=== PATIENT | male | born 1945 | race Asian ===

== ENCOUNTER 2021-05-28 14:11 | Inpatient (IN) | payer OTHER, MEDICAID ==
[~2021-05-28] VITALS: Ht 165.1 cm; Wt 58.5 kg
[2021-05-28 14:11] VITALS: BP_SYST 151
[2021-05-28] MEDS ORDERED: NACL 0.9% 1,000 ML IV ONE (14:45)
[2021-05-28 15:51] LABS: MEAN CORPUSCULAR HEMOGLOBIN 35 pg (27-31)
[2021-05-28 15:56] LABS: ANION GAP 11 (5-15); CALCIUM 10.1 mg/dL (8.4-11.0); CHLORIDE 103 mmol/L (98-107); CREATININE 1.19 mg/dL (0.55-1.30); GLUCOSE 113 mg/dL (70-99); POTASSIUM 4.4 mmol/L (3.5-5.1); SODIUM SERUM 143 mmol/L (136-145); UREA NITROGEN, BLOOD 33 mg/dL (8-21)
[2021-05-28 16:02] LABS: ALANINE AMINOTRANSFERASE 36 U/L (12-78); ALBUMIN 4.3 g/dL (3.4-4.8); ASPARTATE AMINOTRANSFERASE 71 U/L (10-37); TOTAL BILIRUBIN 1.1 mg/dL (0.0-1.0)
[2021-05-28 16:03] LABS: ALCOHOL, BLOOD < 3 mg/dL (<10)
[2021-05-28 16:05] LABS: BASOPHILS % (AUTO) 0.1 % (0.0-2.0); HEMATOCRIT 46.1 % (36-54); HEMOGLOBIN 15.9 g/dL (14.0-18.0); LYMPHOCYTES # (AUTO) 0.7 K/uL (1.0-5.5); LYMPHOCYTES % (AUTO) 6.2 % (20.5-51.5); MEAN CORPUSCULAR HGB CONC 35 % (32-36); MEAN CORPUSCULAR VOLUME 102 fL (79.0-98.0); MONOCYTES # (AUTO) 0.8 K/uL (0.0-1.0); MONOCYTES % (AUTO) 7.4 % (1.7-9.3); NEUTROPHILS # (AUTO) 9.5 K/uL (1.8-7.7); NEUTROPHILS % (AUTO) 86.3 % (40.0-70.0); PLATELET COUNT (AUTO) 213 K/uL (130-430); RED BLOOD CELL COUNT(AUTO) 4.51 MIL/uL (4.2-6.2); RED CELL DISTRIBUTION WIDTH 12.1 % (9.0-15.0)
[2021-05-28] MEDS ORDERED: ASPIRIN 325 MG TABLET PO ONE (16:15)
[2021-05-28 16:24] LABS: BARBITURATE, URINE NEGATIVE (NEG <=200); BENZODIAZEPINE, URINE NEGATIVE (NEG <=150); CANNABINOID, URINE NEGATIVE (NEG <=50); COCAINE, URINE NEGATIVE (NEG <=150); METHAMPHETAMINES SCREEN,URINE NEGATIVE (NEG <=500); OPIATE, URINE NEGATIVE (NEG <=100); PHENCYCLIDINE SCREEN,URINE NEGATIVE (NEG <=25); UR TRICYCLIC ANTIDEPRESSANTS NEGATIVE (NEG <=300); URINE AMPHETAMINE NEGATIVE (NEG <=500); URINE METHADONE NEGATIVE (NEG <=200); URINE OXYCODONE SCREEN NEGATIVE (NEG <=100); URINE PROPOXYPHENE SCREEN NEGATIVE (NEG <=300)
[2021-05-28 16:50] LABS: BILIRUBIN,URINE NEGATIVE (NEGATIVE); BLOOD, URINE 2+ (NEGATIVE); COLOR,URINE YELLOW (YELLOW); GLUCOSE,URINE NEGATIVE (NEGATIVE); KETONES,URINE 2+ (NEGATIVE); LEUKOCYTE ESTERASE ,URINE NEGATIVE (NEGATIVE); NITRITE, URINE NEGATIVE (NEGATIVE); PH,URINE 5.5 (5.0-8.0); PROTEIN URINE 1+ (NEGATIVE); UROBILINOGEN,URINE 0.2 (0.2-1.0)
[2021-05-28 17:00] LABS: CLARITY/URINE SLIGHTLY HAZY (CLEAR)
[2021-05-28 17:15] LABS: PROTHROMBIN TIME 10.8 SECS (9.5-12.5)
[2021-05-28 17:21] LABS: RBC,URINE 0-3 /HPF (0-3)
[2021-05-28 17:22] LABS: BACTERIA,URINE FEW /HPF (None Seen); WBC,URINE 0-3 /HPF (0-3)
[2021-05-28] MEDS ORDERED: HALOPERIDOL LACTATE 5 MG/ML VIAL IM ONE (18:00)
[2021-05-28] MEDS ORDERED: BENZTROPINE MESYLATE 2 MG/ 2 ML AMP IM ONE (18:00)
[2021-05-28] MEDS ORDERED: HALOPERIDOL LACTATE 5 MG/ML VIAL ONE (18:01)
[2021-05-28] MEDS ORDERED: BENZTROPINE MESYLATE 2 MG/ 2 ML AMP ONE (18:02)
[2021-05-28] MEDS ORDERED: NS 500 ML IV ONE (18:45)
[2021-05-29] MEDS ORDERED: LORazepam 2 MG/ML VIAL IVP ONE (03:30)
[2021-05-29] MEDS ORDERED: DIPHENHYDRAMINE INJ 50 MG/ML VIAL IVP ONE ×2 (03:30→16:00)
[2021-05-29 03:54] LABS: BASOPHILS # (AUTO) 0.1 K/uL (0.0-0.2); BASOPHILS % (AUTO) 1.1 % (0.0-2.0); EOSINOPHILS % (AUTO) 0.2 % (0.0-4.0); HEMATOCRIT 43.6 % (36-54); LYMPHOCYTES # (AUTO) 0.5 K/uL (1.0-5.5); MEAN CORPUSCULAR HEMOGLOBIN 35 pg (27-31); MEAN CORPUSCULAR HGB CONC 34 % (32-36); MEAN CORPUSCULAR VOLUME 103 fL (79.0-98.0); MONOCYTES # (AUTO) 0.7 K/uL (0.0-1.0); MONOCYTES % (AUTO) 8.8 % (1.7-9.3); NEUTROPHILS # (AUTO) 6.8 K/uL (1.8-7.7); NEUTROPHILS % (AUTO) 83.9 % (40.0-70.0); PLATELET COUNT (AUTO) 168 K/uL (130-430); RED BLOOD CELL COUNT(AUTO) 4.25 MIL/uL (4.2-6.2); RED CELL DISTRIBUTION WIDTH 12.6 % (9.0-15.0); WHITE BLOOD COUNT (AUTO) 8.1 K/uL (4.8-10.8)
[2021-05-29 04:14] LABS: ANION GAP 13 (5-15); CALCIUM 8.7 mg/dL (8.4-11.0); CHLORIDE 106 mmol/L (98-107); CREATININE 0.97 mg/dL (0.55-1.30); GLUCOSE 101 mg/dL (70-99); POTASSIUM 3.8 mmol/L (3.5-5.1); SODIUM SERUM 143 mmol/L (136-145); UREA NITROGEN, BLOOD 30 mg/dL (8-21)
[2021-05-29 04:28] LABS: ALANINE AMINOTRANSFERASE 27 U/L (12-78); ALBUMIN 3.6 g/dL (3.4-4.8); ASPARTATE AMINOTRANSFERASE 77 U/L (10-37); THYROID STIMULATING HORMONE 0.99 uIu/mL (0.36-3.74); TOTAL BILIRUBIN 1.2 mg/dL (0.0-1.0)
[2021-05-29 07:55] LABS: CHOLESTEROL 165 mg/dL (<200); HDL CHOLESTEROL 78 mg/dL (>45); LDL CHOLESTEROL 90 mg/dL (<100); TRIGLYCERIDES 71 mg/dL (30-150)
[2021-05-29 08:30] VITALS: BP_SYST 159
[2021-05-29 08:42] VITALS: BP_SYST 159
[2021-05-29 11:27] VITALS: BP_SYST 155
[2021-05-29 16:00] VITALS: BP_SYST 140
[2021-05-29] MEDS ORDERED: HALOPERIDOL LACTATE 5 MG/ML VIAL IVP ONE (16:00)
[2021-05-29] MEDS: NACL 0.9% 1,000 ML IV SCH (16:15)
[2021-05-29 20:00] VITALS: BP_SYST 123
[2021-05-29] MEDS: QUEtiapine FUMARATE 25 MG TABLET PO SCH (20:21)
[2021-05-30] MEDS: LORazepam 2 MG/ML VIAL IVP PRN ×4 (00:09→20:13)
[2021-05-30 01:00] VITALS: BP_SYST 144
[2021-05-30 06:57] LABS: BASOPHILS % (AUTO) 0.3 % (0.0-2.0); EOSINOPHILS % (AUTO) 0.4 % (0.0-4.0); HEMOGLOBIN 16.5 g/dL (14.0-18.0); LYMPHOCYTES # (AUTO) 0.7 K/uL (1.0-5.5); LYMPHOCYTES % (AUTO) 10.9 % (20.5-51.5); MEAN CORPUSCULAR HEMOGLOBIN 36 pg (27-31); MEAN CORPUSCULAR HGB CONC 35 % (32-36); MEAN CORPUSCULAR VOLUME 102 fL (79.0-98.0); MONOCYTES # (AUTO) 0.7 K/uL (0.0-1.0); MONOCYTES % (AUTO) 11.3 % (1.7-9.3); NEUTROPHILS # (AUTO) 4.9 K/uL (1.8-7.7); NEUTROPHILS % (AUTO) 77.1 % (40.0-70.0); PLATELET COUNT (AUTO) 177 K/uL (130-430); RED CELL DISTRIBUTION WIDTH 12.4 % (9.0-15.0); WHITE BLOOD COUNT (AUTO) 6.3 K/uL (4.8-10.8)
[2021-05-30 08:33] LABS: ANION GAP 12 (5-15); CALCIUM 8.9 mg/dL (8.4-11.0); CHLORIDE 104 mmol/L (98-107); CREATININE 0.89 mg/dL (0.55-1.30); GLUCOSE 75 mg/dL (70-99); POTASSIUM 3.4 mmol/L (3.5-5.1); SODIUM SERUM 141 mmol/L (136-145); UREA NITROGEN, BLOOD 19 mg/dL (8-21)
[2021-05-30 08:53] VITALS: BP_SYST 146
[2021-05-30] MEDS ORDERED: AMIODARONE HCL 150 MG in D5W 100 ML IV ONE ×4 (09:00)
[2021-05-30] MEDS ORDERED: FOLIC ACID 1 MG, THIAMINE HCL 100 MG, MAGNESIUM SULFATE 1 GM, MVI 10 ML in NACL 0.9% 1,... IV SCH (09:00)
[2021-05-30] MEDS ORDERED: METOPROLOL TARTRATE 5 MG/5 ML AMPUL IVP ONE (09:45)
[2021-05-30] MEDS ORDERED: METOPROLOL TARTRATE 5 MG/5 ML AMPUL ONE (09:54)
[2021-05-30] MEDS ORDERED: METOPROLOL SUCCINATE 25 MG TAB.SR.24H (TOPROL XL) PO ONE (10:00)
[2021-05-30] MEDS: FOLIC ACID 1 MG, MVI 10 ML in NACL 0.9% 1,000 ML IV SCH (11:03)
[2021-05-30] MEDS: THIAMINE HCL 100 MG, MAGNESIUM SULFATE 1 GM in NS 100 ML IV SCH (11:03)
[2021-05-30] MEDS: AMIODARONE HCL 200 MG TABLET PO SCH ×2 (11:06→20:21)
[2021-05-30 11:30] VITALS: BP_SYST 130
[2021-05-30 15:42] VITALS: BP_SYST 130
[2021-05-30] MEDS: NACL 0.9% 1,000 ML IV SCH (20:11)
[2021-05-30] MEDS: QUEtiapine FUMARATE 25 MG TABLET PO SCH (20:13)
[2021-05-30 20:21] VITALS: BP_SYST 156
[2021-05-31 00:40] VITALS: BP_SYST 141
[2021-05-31 06:59] LABS: BASOPHILS % (AUTO) 0.2 % (0.0-2.0); EOSINOPHILS # (AUTO) 0.1 K/uL (0.0-0.4); EOSINOPHILS % (AUTO) 1.2 % (0.0-4.0); HEMATOCRIT 47.9 % (36-54); HEMOGLOBIN 16.4 g/dL (14.0-18.0); LYMPHOCYTES # (AUTO) 0.6 K/uL (1.0-5.5); LYMPHOCYTES % (AUTO) 9.6 % (20.5-51.5); MEAN CORPUSCULAR HEMOGLOBIN 35 pg (27-31); MEAN CORPUSCULAR HGB CONC 34 % (32-36); MEAN CORPUSCULAR VOLUME 102 fL (79.0-98.0); MONOCYTES # (AUTO) 0.6 K/uL (0.0-1.0); MONOCYTES % (AUTO) 10.5 % (1.7-9.3); NEUTROPHILS # (AUTO) 4.8 K/uL (1.8-7.7); NEUTROPHILS % (AUTO) 78.5 % (40.0-70.0); PLATELET COUNT (AUTO) 157 K/uL (130-430); RED CELL DISTRIBUTION WIDTH 12.2 % (9.0-15.0); WHITE BLOOD COUNT (AUTO) 6.1 K/uL (4.8-10.8)
[2021-05-31 08:00] VITALS: BP_SYST 116
[2021-05-31 08:08] LABS: ANION GAP 10 (5-15); CALCIUM 8.3 mg/dL (8.4-11.0); CHLORIDE 101 mmol/L (98-107); CREATININE 0.65 mg/dL (0.55-1.30); GLUCOSE 97 mg/dL (70-99); SODIUM SERUM 140 mmol/L (136-145); UREA NITROGEN, BLOOD 10 mg/dL (8-21)
[2021-05-31] MEDS: NACL 0.9% 1,000 ML IV SCH (08:15)
[2021-05-31] MEDS ORDERED: METOPROLOL SUCCINATE 25 MG TAB.SR.24H (TOPROL XL) PO SCH (09:00)
[2021-05-31] MEDS: AMIODARONE HCL 200 MG TABLET PO SCH ×2 (09:10→20:42)
[2021-05-31] MEDS: THIAMINE HCL 100 MG TABLET PO SCH (09:45)
[2021-05-31] MEDS: THIAMINE HCL 100 MG, MAGNESIUM SULFATE 1 GM in NS 100 ML IV SCH (10:37)
[2021-05-31] MEDS: FOLIC ACID 1 MG, MVI 10 ML in NACL 0.9% 1,000 ML IV SCH (10:37)
[2021-05-31] MEDS ORDERED: THIAMINE HCL 100 MG TABLET PO ONE (10:45)
[2021-05-31 11:36] VITALS: BP_SYST 120
[2021-05-31] MEDS ORDERED: POTASSIUM CHLORIDE 20 MEQ/PKT PACKET PO ONE (13:00)
[2021-05-31 15:26] VITALS: BP_SYST 121
[2021-05-31 20:30] VITALS: BP_SYST 139
[2021-05-31] MEDS: QUEtiapine FUMARATE 25 MG TABLET PO SCH (20:35)
[2021-05-31] MEDS: LORazepam 2 MG/ML VIAL IVP PRN (22:47)
[2021-05-31] MEDS ORDERED: AMIODARONE HCL 200 MG TABLET PO ONE (23:15)
[2021-06-01 01:30] VITALS: BP_SYST 138
[2021-06-01] MEDS: NACL 0.9% 1,000 ML IV SCH (04:15)
[2021-06-01] MEDS ORDERED: METOPROLOL TARTRATE 5 MG/5 ML AMPUL IVP ONE (06:15)
[2021-06-01] MEDS: THIAMINE HCL 100 MG TABLET PO SCH (08:46)
[2021-06-01] MEDS: AMIODARONE HCL 200 MG TABLET PO SCH ×2 (08:47→22:40)
[2021-06-01] MEDS: FOLIC ACID 1 MG TABLET PO SCH (08:47)
[2021-06-01] MEDS: FOLIC ACID 1 MG, MVI 10 ML in NACL 0.9% 1,000 ML IV SCH (08:47)
[2021-06-01] MEDS: THIAMINE HCL 100 MG, MAGNESIUM SULFATE 1 GM in NS 100 ML IV SCH (08:48)
[2021-06-01 09:23] LABS: BASOPHILS % (AUTO) 0.3 % (0.0-2.0); EOSINOPHILS # (AUTO) 0.1 K/uL (0.0-0.4); EOSINOPHILS % (AUTO) 1.4 % (0.0-4.0); HEMOGLOBIN 17.7 g/dL (14.0-18.0); LYMPHOCYTES # (AUTO) 0.8 K/uL (1.0-5.5); LYMPHOCYTES % (AUTO) 11.5 % (20.5-51.5); MEAN CORPUSCULAR HEMOGLOBIN 36 pg (27-31); MEAN CORPUSCULAR HGB CONC 35 % (32-36); MEAN CORPUSCULAR VOLUME 102 fL (79.0-98.0); MONOCYTES # (AUTO) 1.2 K/uL (0.0-1.0); MONOCYTES % (AUTO) 17.1 % (1.7-9.3); NEUTROPHILS # (AUTO) 4.8 K/uL (1.8-7.7); NEUTROPHILS % (AUTO) 69.7 % (40.0-70.0); PLATELET COUNT (AUTO) 160 K/uL (130-430); RED BLOOD CELL COUNT(AUTO) 4.99 MIL/uL (4.2-6.2); RED CELL DISTRIBUTION WIDTH 12.3 % (9.0-15.0); WHITE BLOOD COUNT (AUTO) 6.9 K/uL (4.8-10.8)
[2021-06-01 10:01] LABS: ANION GAP 10 (5-15); CALCIUM 8.5 mg/dL (8.4-11.0); CHLORIDE 106 mmol/L (98-107); GLUCOSE 110 mg/dL (70-99); POTASSIUM 3.4 mmol/L (3.5-5.1); SODIUM SERUM 142 mmol/L (136-145); UREA NITROGEN, BLOOD 10 mg/dL (8-21)
[2021-06-01 12:33] VITALS: BP_SYST 150
[2021-06-01 16:45] VITALS: BP_SYST 153
[2021-06-01 22:00] VITALS: BP_SYST 173
[2021-06-01] MEDS: QUEtiapine FUMARATE 25 MG TABLET PO SCH (22:34)
[2021-06-02 00:33] VITALS: BP_SYST 121
[2021-06-02] MEDS: NACL 0.9% 1,000 ML IV SCH ×2 (05:09→23:05)
[2021-06-02 08:00] VITALS: BP_SYST 176
[2021-06-02] MEDS: FOLIC ACID 1 MG TABLET PO SCH (08:41)
[2021-06-02] MEDS: THIAMINE HCL 100 MG TABLET PO SCH (08:41)
[2021-06-02] MEDS: AMIODARONE HCL 200 MG TABLET PO SCH ×2 (08:42→20:14)
[2021-06-02] MEDS: METOPROLOL SUCCINATE 50 MG TAB.SR.24H (TOPROL XL) PO SCH (08:44)
[2021-06-02] MEDS: THIAMINE HCL 100 MG, MAGNESIUM SULFATE 1 GM in NS 100 ML IV SCH (08:52)
[2021-06-02] MEDS: FOLIC ACID 1 MG, MVI 10 ML in NACL 0.9% 1,000 ML IV SCH (08:53)
[2021-06-02 11:31] VITALS: BP_SYST 100
[2021-06-02 15:46] VITALS: BP_SYST 105
[2021-06-02 20:00] VITALS: BP_SYST 146
[2021-06-02] MEDS: QUEtiapine FUMARATE 25 MG TABLET PO SCH (20:14)
[2021-06-03] VITALS: BP_SYST 153
[2021-06-03] MEDS: LORazepam 2 MG/ML VIAL IVP PRN (05:55)
[2021-06-03 08:00] VITALS: BP_SYST 170
[2021-06-03] MEDS: THIAMINE HCL 100 MG, MAGNESIUM SULFATE 1 GM in NS 100 ML IV SCH (09:30)
[2021-06-03] MEDS: FOLIC ACID 1 MG, MVI 10 ML in NACL 0.9% 1,000 ML IV SCH (09:31)
[2021-06-03] MEDS: AMIODARONE HCL 200 MG TABLET PO SCH ×2 (09:32→20:45)
[2021-06-03] MEDS: FOLIC ACID 1 MG TABLET PO SCH (09:32)
[2021-06-03] MEDS: METOPROLOL SUCCINATE 50 MG TAB.SR.24H (TOPROL XL) PO SCH (09:32)
[2021-06-03] MEDS: THIAMINE HCL 100 MG TABLET PO SCH (09:32)
[2021-06-03] MEDS: NACL 0.9% 1,000 ML IV SCH (16:15)
[2021-06-03 16:53] VITALS: BP_SYST 168
[2021-06-03 20:00] VITALS: BP_SYST 162
[2021-06-03] MEDS: QUEtiapine FUMARATE 25 MG TABLET PO SCH (20:45)
[2021-06-04 00:29] VITALS: BP_SYST 161
[2021-06-04 06:47] LABS: BASOPHILS % (AUTO) 0.3 % (0.0-2.0); LYMPHOCYTES # (AUTO) 0.4 K/uL (1.0-5.5); MEAN CORPUSCULAR HEMOGLOBIN 35 pg (27-31); MEAN CORPUSCULAR HGB CONC 35 % (32-36); MEAN CORPUSCULAR VOLUME 102 fL (79.0-98.0); MONOCYTES # (AUTO) 0.7 K/uL (0.0-1.0); MONOCYTES % (AUTO) 7.4 % (1.7-9.3); NEUTROPHILS # (AUTO) 7.8 K/uL (1.8-7.7); NEUTROPHILS % (AUTO) 87.3 % (40.0-70.0); PLATELET COUNT (AUTO) 196 K/uL (130-430); RED BLOOD CELL COUNT(AUTO) 5.12 MIL/uL (4.2-6.2); RED CELL DISTRIBUTION WIDTH 12.1 % (9.0-15.0)
[2021-06-04 07:22] LABS: ALANINE AMINOTRANSFERASE 48 U/L (12-78); ALBUMIN 3.7 g/dL (3.4-4.8); ANION GAP 12 (5-15); ASPARTATE AMINOTRANSFERASE 39 U/L (10-37); CHLORIDE 101 mmol/L (98-107); CREATININE 0.94 mg/dL (0.55-1.30); GLUCOSE 116 mg/dL (70-99); POTASSIUM 3.6 mmol/L (3.5-5.1); SODIUM SERUM 141 mmol/L (136-145); TOTAL BILIRUBIN 1.6 mg/dL (0.0-1.0); UREA NITROGEN, BLOOD 15 mg/dL (8-21)
[2021-06-04 08:02] VITALS: BP_SYST 169
[2021-06-04] MEDS: METOPROLOL SUCCINATE 50 MG TAB.SR.24H (TOPROL XL) PO SCH (08:25)
[2021-06-04] MEDS: AMIODARONE HCL 200 MG TABLET PO SCH ×2 (08:26→21:00)
[2021-06-04] MEDS: QUEtiapine FUMARATE 25 MG TABLET PO SCH ×2 (08:26→21:00)
[2021-06-04] MEDS: THIAMINE HCL 100 MG TABLET PO SCH (08:26)
[2021-06-04] MEDS: FOLIC ACID 1 MG TABLET PO SCH (08:26)
[2021-06-04] MEDS: THIAMINE HCL 100 MG, MAGNESIUM SULFATE 1 GM in NS 100 ML IV SCH (10:14)
[2021-06-04] MEDS: FOLIC ACID 1 MG, MVI 10 ML in NACL 0.9% 1,000 ML IV SCH (10:15)
[2021-06-04] MEDS: NACL 0.9% 1,000 ML IV SCH (11:38)
[2021-06-04] MEDS ORDERED: ACETAMINOPHEN 325 MG TABLET PO PRN ×2 (12:30→12:45)
[2021-06-04 12:58] VITALS: BP_SYST 165
[2021-06-04 13:05] LABS: BASOPHILS % (AUTO) 0.2 % (0.0-2.0); HEMATOCRIT 45.6 % (36-54); HEMOGLOBIN 15.9 g/dL (14.0-18.0); LYMPHOCYTES # (AUTO) 0.3 K/uL (1.0-5.5); LYMPHOCYTES % (AUTO) 2.3 % (20.5-51.5); MEAN CORPUSCULAR HEMOGLOBIN 35 pg (27-31); MEAN CORPUSCULAR HGB CONC 35 % (32-36); MEAN CORPUSCULAR VOLUME 101 fL (79.0-98.0); MONOCYTES # (AUTO) 0.9 K/uL (0.0-1.0); MONOCYTES % (AUTO) 7.4 % (1.7-9.3); NEUTROPHILS # (AUTO) 10.9 K/uL (1.8-7.7); NEUTROPHILS % (AUTO) 90.1 % (40.0-70.0); PLATELET COUNT (AUTO) 156 K/uL (130-430); RED CELL DISTRIBUTION WIDTH 12.4 % (9.0-15.0); WHITE BLOOD COUNT (AUTO) 12.1 K/uL (4.8-10.8)
[2021-06-04 13:39] LABS: BILIRUBIN,URINE NEGATIVE (NEGATIVE); BLOOD, URINE 2+ (NEGATIVE); CLARITY/URINE CLEAR (CLEAR); COLOR,URINE YELLOW (YELLOW); GLUCOSE,URINE NEGATIVE (NEGATIVE); KETONES,URINE 1+ (NEGATIVE); LEUKOCYTE ESTERASE ,URINE NEGATIVE (NEGATIVE); NITRITE, URINE NEGATIVE (NEGATIVE); PROTEIN URINE NEGATIVE (NEGATIVE); UROBILINOGEN,URINE 0.2 (0.2-1.0)
[2021-06-04 14:01] LABS: BACTERIA,URINE RARE /HPF (None Seen); MUCUS,URINE 1+ /LPF (None Seen); WBC,URINE 0-3 /HPF (0-3)
[2021-06-04 20:00] VITALS: BP_SYST 149
[2021-06-05 00:30] VITALS: BP_SYST 129
[2021-06-05] MEDS ORDERED: VANCOMYCIN HCL 1 GM/NS PREMIX 250 ML IV ONE (04:15)
[2021-06-05] MEDS ORDERED: VANCOMYCIN HCL 1000 MG/VIAL IV ONE (05:16)
[2021-06-05 08:00] VITALS: BP_SYST 109
[2021-06-05] MEDS: THIAMINE HCL 100 MG TABLET PO SCH ×2 (08:50→09:00)
[2021-06-05] MEDS: QUEtiapine FUMARATE 25 MG TABLET PO SCH ×3 (08:50→21:00)
[2021-06-05] MEDS: METOPROLOL SUCCINATE 50 MG TAB.SR.24H (TOPROL XL) PO SCH ×2 (08:50→09:00)
[2021-06-05] MEDS: FOLIC ACID 1 MG TABLET PO SCH ×2 (08:51→09:00)
[2021-06-05] MEDS: AMIODARONE HCL 200 MG TABLET PO SCH ×3 (08:51→21:00)
[2021-06-05] MEDS: NACL 0.9% 1,000 ML IV SCH (08:51)
[2021-06-05] MEDS: THIAMINE HCL 100 MG, MAGNESIUM SULFATE 1 GM in NS 100 ML IV SCH (08:51)
[2021-06-05] MEDS: FOLIC ACID 1 MG, MVI 10 ML in NACL 0.9% 1,000 ML IV SCH (08:52)
[2021-06-05 16:24] VITALS: BP_SYST 105
[2021-06-05 16:30] VITALS: BP_SYST 98
[2021-06-05 17:00] VITALS: BP_SYST 95
[2021-06-05 18:00] VITALS: BP_SYST 102
[2021-06-05] MEDS: VANCOMYCIN HCL 500 MG in NS 100 ML IV SCH (20:02)
[2021-06-06] VITALS (17 sets, daily range): BP systolic 106–137
[2021-06-06 01:56] LABS: ALANINE AMINOTRANSFERASE 60 U/L (12-78); ALBUMIN 2.2 g/dL (3.4-4.8); ANION GAP 17 (5-15); ASPARTATE AMINOTRANSFERASE 137 U/L (10-37); CHLORIDE 110 mmol/L (98-107); GLUCOSE 131 mg/dL (70-99); POTASSIUM 3.6 mmol/L (3.5-5.1); SODIUM SERUM 147 mmol/L (136-145); TOTAL BILIRUBIN 1.3 mg/dL (0.0-1.0); UREA NITROGEN, BLOOD 48 mg/dL (8-21)
[2021-06-06 02:02] LABS: HEMATOCRIT 50.7 % (36-54); MEAN CORPUSCULAR HEMOGLOBIN 35 pg (27-31); MEAN CORPUSCULAR HGB CONC 34 % (32-36); MEAN CORPUSCULAR VOLUME 104 fL (79.0-98.0); PLATELET COUNT (AUTO) 127 K/uL (130-430); RED BLOOD CELL COUNT(AUTO) 4.86 MIL/uL (4.2-6.2); RED CELL DISTRIBUTION WIDTH 12.9 % (9.0-15.0); WHITE BLOOD COUNT (AUTO) 26.3 K/uL (4.8-10.8)
[2021-06-06 02:57] LABS: CREATININE 2.56 mg/dL (0.55-1.30)
[2021-06-06 03:04] LABS: CALCIUM 6.9 mg/dL (8.4-11.0)
[2021-06-06 04:39] LABS: BAND % (MANUAL) 28 % (0-6); BASOPHILS % (MANUAL) 0 % (0-2); EOSINOPHILS % (MANUAL) 0 % (0-7); LYMPHOCYTES % (MANUAL) 1 % (20-46); METAMYELOCYTES % 7 % (0-0); MONOCYTES % (MANUAL) 7 % (0-11); MYELOCYTES % 2 % (0-0)
[2021-06-06] MEDS: NACL 0.9% 1,000 ML IV SCH (05:37)
[2021-06-06] MEDS: VANCOMYCIN HCL 500 MG in NS 100 ML IV SCH ×2 (05:38→17:43)
[2021-06-06] MEDS ORDERED: AMIODARONE HCL 150 MG/3ML VIAL ONE (06:37)
[2021-06-06] MEDS ORDERED: ADENOSINE 6MG/2ML VIAL ONE (06:40)
[2021-06-06] MEDS ORDERED: AMIODARONE HCL 450 MG/9 ML VIAL IV ONE (07:21)
[2021-06-06] MEDS ORDERED: AMIODARONE HCL 900 MG in D5W 500 ML IV SCH (07:30)
[2021-06-06] MEDS: AMIODARONE HCL 200 MG TABLET PO SCH ×2 (09:00→21:00)
[2021-06-06] MEDS: QUEtiapine FUMARATE 25 MG TABLET PO SCH ×2 (09:00→21:00)
[2021-06-06] MEDS: METOPROLOL SUCCINATE 50 MG TAB.SR.24H (TOPROL XL) PO SCH (09:00)
[2021-06-06] MEDS: THIAMINE HCL 100 MG TABLET PO SCH (09:00)
[2021-06-06] MEDS: FOLIC ACID 1 MG TABLET PO SCH (09:00)
[2021-06-06] MEDS: THIAMINE HCL 100 MG, MAGNESIUM SULFATE 1 GM in NS 100 ML IV SCH (09:45)
[2021-06-06] MEDS: FOLIC ACID 1 MG, MVI 10 ML in NACL 0.9% 1,000 ML IV SCH (09:45)
[2021-06-06 16:41] LABS: HEMATOCRIT 49.2 % (36-54); HEMOGLOBIN 16.7 g/dL (14.0-18.0); MEAN CORPUSCULAR HEMOGLOBIN 35 pg (27-31); MEAN CORPUSCULAR HGB CONC 34 % (32-36); MEAN CORPUSCULAR VOLUME 104 fL (79.0-98.0); PLATELET COUNT (AUTO) 116 K/uL (130-430); RED BLOOD CELL COUNT(AUTO) 4.74 MIL/uL (4.2-6.2); RED CELL DISTRIBUTION WIDTH 12.7 % (9.0-15.0); WHITE BLOOD COUNT (AUTO) 24.8 K/uL (4.8-10.8)
[2021-06-06 17:10] LABS: BAND % (MANUAL) 8 % (0-6); BASOPHILS % (MANUAL) 0 % (0-2); EOSINOPHILS % (MANUAL) 0 % (0-7); LYMPHOCYTES % (MANUAL) 2 % (20-46); MONOCYTES % (MANUAL) 5 % (0-11)
[2021-06-06] MEDS: KCL 20 mEq in D5/0.45NS 1000mL 1,000 ML IV SCH (17:33)
[2021-06-07] VITALS (23 sets, daily range): BP systolic 96–147
[2021-06-07] MEDS: VANCOMYCIN HCL 500 MG in NS 100 ML IV SCH ×2 (06:08→18:00)
[2021-06-07] MEDS: KCL 20 mEq in D5/0.45NS 1000mL 1,000 ML IV SCH ×3 (06:09→21:00)
[2021-06-07 06:42] LABS: BASOPHILS # (AUTO) 0.1 K/uL (0.0-0.2); BASOPHILS % (AUTO) 0.3 % (0.0-2.0); HEMATOCRIT 46.5 % (36-54); HEMOGLOBIN 15.4 g/dL (14.0-18.0); LYMPHOCYTES # (AUTO) 0.5 K/uL (1.0-5.5); LYMPHOCYTES % (AUTO) 2.2 % (20.5-51.5); MEAN CORPUSCULAR HEMOGLOBIN 35 pg (27-31); MEAN CORPUSCULAR HGB CONC 33 % (32-36); MEAN CORPUSCULAR VOLUME 105 fL (79.0-98.0); MONOCYTES % (AUTO) 4.7 % (1.7-9.3); NEUTROPHILS # (AUTO) 20.6 K/uL (1.8-7.7); NEUTROPHILS % (AUTO) 92.8 % (40.0-70.0); PLATELET COUNT (AUTO) 98 K/uL (130-430); RED BLOOD CELL COUNT(AUTO) 4.45 MIL/uL (4.2-6.2); WHITE BLOOD COUNT (AUTO) 22.2 K/uL (4.8-10.8)
[2021-06-07 07:12] LABS: PHOSPHORUS 2.6 mg/dL (2.7-4.5)
[2021-06-07 08:16] LABS: ALANINE AMINOTRANSFERASE 85 U/L (12-78); ALBUMIN 1.8 g/dL (3.4-4.8); ANION GAP 11 (5-15); ASPARTATE AMINOTRANSFERASE 152 U/L (10-37); CALCIUM 7.2 mg/dL (8.4-11.0); CHLORIDE 112 mmol/L (98-107); CREATININE 2.88 mg/dL (0.55-1.30); GLUCOSE 327 mg/dL (70-99); POTASSIUM 3.9 mmol/L (3.5-5.1); SODIUM SERUM 145 mmol/L (136-145); TOTAL BILIRUBIN 0.7 mg/dL (0.0-1.0); UREA NITROGEN, BLOOD 64 mg/dL (8-21)
[2021-06-07] MEDS: AMIODARONE HCL 200 MG TABLET PO SCH (09:00)
[2021-06-07] MEDS: METOPROLOL SUCCINATE 50 MG TAB.SR.24H (TOPROL XL) PO SCH (09:00)
[2021-06-07] MEDS ORDERED: AMIODARONE HCL 450 MG in D5W 241 ML IV SCH (09:15)
[2021-06-07] MEDS ORDERED: *TPN PER PHARMACY XX PRN (09:15)
[2021-06-07 10:20] LABS: PHOSPHORUS 2.8 mg/dL (2.7-4.5)
[2021-06-07 11:01] LABS: INR 1.1 (0.80-1.20); PROTHROMBIN TIME 11.7 SECS (9.5-12.5)
[2021-06-07] MEDS ORDERED: ALBUMIN HUMAN 25% 100 ML IV ONE (12:45)
[2021-06-07] MEDS: LORazepam 2 MG/ML VIAL IVP PRN (13:11)
[2021-06-07] MEDS ORDERED: TPN NEPHRAMINE IV SCH ×8 (21:00)
[2021-06-07] MEDS ORDERED: [UNRECOGNIZED DRUG - OTHER] IV SCH ×8 (21:00)
[2021-06-07] MEDS ORDERED: K PHOS IV SCH ×8 (21:00)
[2021-06-07] MEDS ORDERED: CALCIUM GLUCONATE IV SCH ×8 (21:00)
[2021-06-07 23:50] LABS: BARBITURATE, URINE NEGATIVE (NEG <=200); BENZODIAZEPINE, URINE NEGATIVE (NEG <=150); CANNABINOID, URINE NEGATIVE (NEG <=50); COCAINE, URINE NEGATIVE (NEG <=150); METHAMPHETAMINES SCREEN,URINE NEGATIVE (NEG <=500); OPIATE, URINE NEGATIVE (NEG <=100); PHENCYCLIDINE SCREEN,URINE NEGATIVE (NEG <=25); UR TRICYCLIC ANTIDEPRESSANTS NEGATIVE (NEG <=300); URINE AMPHETAMINE NEGATIVE (NEG <=500); URINE METHADONE NEGATIVE (NEG <=200); URINE OXYCODONE SCREEN NEGATIVE (NEG <=100); URINE PROPOXYPHENE SCREEN NEGATIVE (NEG <=300)
[2021-06-08] VITALS (24 sets, daily range): BP systolic 118–155
[2021-06-08] MEDS: VANCOMYCIN HCL 500 MG in NS 100 ML IV SCH ×2 (06:25→18:27)
[2021-06-08 06:57] LABS: HEMATOCRIT 42.1 % (36-54); HEMOGLOBIN 14.1 g/dL (14.0-18.0); LYMPHOCYTES # (AUTO) 0.4 K/uL (1.0-5.5); LYMPHOCYTES % (AUTO) 2.5 % (20.5-51.5); MEAN CORPUSCULAR HEMOGLOBIN 35 pg (27-31); MEAN CORPUSCULAR HGB CONC 33 % (32-36); MEAN CORPUSCULAR VOLUME 103 fL (79.0-98.0); MONOCYTES # (AUTO) 0.6 K/uL (0.0-1.0); MONOCYTES % (AUTO) 3.6 % (1.7-9.3); NEUTROPHILS # (AUTO) 16.5 K/uL (1.8-7.7); NEUTROPHILS % (AUTO) 93.9 % (40.0-70.0); PLATELET COUNT (AUTO) 86 K/uL (130-430); RED BLOOD CELL COUNT(AUTO) 4.08 MIL/uL (4.2-6.2); RED CELL DISTRIBUTION WIDTH 12.4 % (9.0-15.0); WHITE BLOOD COUNT (AUTO) 17.6 K/uL (4.8-10.8)
[2021-06-08 07:04] LABS: ALANINE AMINOTRANSFERASE 74 U/L (12-78); ALBUMIN 1.6 g/dL (3.4-4.8); ANION GAP 11 (5-15); ASPARTATE AMINOTRANSFERASE 91 U/L (10-37); CALCIUM 7.2 mg/dL (8.4-11.0); CHLORIDE 117 mmol/L (98-107); CREATININE 2.23 mg/dL (0.55-1.30); GLUCOSE 273 mg/dL (70-99); PHOSPHORUS 1.6 mg/dL (2.7-4.5); POTASSIUM 3.9 mmol/L (3.5-5.1); SODIUM SERUM 148 mmol/L (136-145); TOTAL BILIRUBIN 0.4 mg/dL (0.0-1.0); UREA NITROGEN, BLOOD 59 mg/dL (8-21)
[2021-06-08] MEDS: INSULIN REGULAR, HUMAN 100 UNITS/ML, 10 ML VIAL (humuLIN R) SUBCUT PRN ×2 (11:20→19:10)
[2021-06-08] MEDS ORDERED: COMMUNICATION ORDER XX ONE (15:00)
[2021-06-08] MEDS: KCL 20 mEq in D5/0.45NS 1000mL 1,000 ML IV SCH (16:39)
[2021-06-08] MEDS: ALBUMIN HUMAN 25% 100 ML IV SCH ×2 (16:39→19:15)
[2021-06-08] MEDS ORDERED: TPN NEPHRAMINE IV SCH ×8 (21:00)
[2021-06-08] MEDS ORDERED: K PHOS IV SCH ×8 (21:00)
[2021-06-08] MEDS ORDERED: [UNRECOGNIZED DRUG - OTHER] IV SCH ×8 (21:00)
[2021-06-08] MEDS ORDERED: CALCIUM GLUCONATE IV SCH ×8 (21:00)
[2021-06-08] MEDS: FAT EMULSIONS 250 ML IV SCH (22:19)
[2021-06-09] VITALS (23 sets, daily range): BP systolic 105–160
[2021-06-09] MEDS: VANCOMYCIN HCL 500 MG in NS 100 ML IV SCH ×2 (06:37→17:46)
[2021-06-09] MEDS ORDERED: METOPROLOL TARTRATE 5 MG/5 ML AMPUL IVP PRN (08:00)
[2021-06-09 08:03] LABS: ALANINE AMINOTRANSFERASE 91 U/L (12-78); ALBUMIN 2.3 g/dL (3.4-4.8); ANION GAP 10 (5-15); ASPARTATE AMINOTRANSFERASE 133 U/L (10-37); CALCIUM 7.9 mg/dL (8.4-11.0); CHLORIDE 117 mmol/L (98-107); CREATININE 1.89 mg/dL (0.55-1.30); GLUCOSE 187 mg/dL (70-99); PHOSPHORUS 1.9 mg/dL (2.7-4.5); POTASSIUM 4.1 mmol/L (3.5-5.1); SODIUM SERUM 150 mmol/L (136-145); TOTAL BILIRUBIN 0.5 mg/dL (0.0-1.0); UREA NITROGEN, BLOOD 56 mg/dL (8-21)
[2021-06-09 08:30] LABS: HEMATOCRIT 40.1 % (36-54); HEMOGLOBIN 13.5 g/dL (14.0-18.0); LYMPHOCYTES # (AUTO) 0.5 K/uL (1.0-5.5); LYMPHOCYTES % (AUTO) 4.6 % (20.5-51.5); MEAN CORPUSCULAR HEMOGLOBIN 35 pg (27-31); MEAN CORPUSCULAR HGB CONC 34 % (32-36); MEAN CORPUSCULAR VOLUME 104 fL (79.0-98.0); MONOCYTES # (AUTO) 0.5 K/uL (0.0-1.0); MONOCYTES % (AUTO) 4.7 % (1.7-9.3); NEUTROPHILS # (AUTO) 10.6 K/uL (1.8-7.7); NEUTROPHILS % (AUTO) 90.7 % (40.0-70.0); PLATELET COUNT (AUTO) 72 K/uL (130-430); RED BLOOD CELL COUNT(AUTO) 3.86 MIL/uL (4.2-6.2); RED CELL DISTRIBUTION WIDTH 12.8 % (9.0-15.0); WHITE BLOOD COUNT (AUTO) 11.6 K/uL (4.8-10.8)
[2021-06-09] MEDS ORDERED: COMMUNICATION ORDER XX ONE (12:30)
[2021-06-09] MEDS: INSULIN REGULAR, HUMAN 100 UNITS/ML, 10 ML VIAL (humuLIN R) SUBCUT PRN ×3 (13:15→23:58)
[2021-06-09] MEDS: KCL 20 mEq in D5/0.45NS 1000mL 1,000 ML IV SCH (13:20)
[2021-06-09] MEDS ORDERED: AMIODARONE HCL 200 MG TABLET GT SCH (13:42)
[2021-06-09] MEDS ORDERED: ACETAMINOPHEN 650 MG/20.3 ML UDC GT PRN ×2 (13:45)
[2021-06-09] MEDS ORDERED: DILTIAZEM HCL 25 MG/5 ML VIAL IVP ONE (16:30)
[2021-06-09] MEDS ORDERED: [UNRECOGNIZED DRUG - OTHER] IV SCH ×7 (21:00)
[2021-06-09] MEDS ORDERED: CALCIUM GLUCONATE IV SCH ×7 (21:00)
[2021-06-09] MEDS ORDERED: TPN NEPHRAMINE IV SCH ×7 (21:00)
[2021-06-09] MEDS ORDERED: K PHOS IV SCH ×7 (21:00)
[2021-06-09] MEDS: QUEtiapine FUMARATE 25 MG TABLET GT SCH (21:17)
[2021-06-09] MEDS: FAT EMULSIONS 250 ML IV SCH (21:18)
[2021-06-10] VITALS (23 sets, daily range): BP systolic 97–150
[2021-06-10] MEDS: INSULIN REGULAR, HUMAN 100 UNITS/ML, 10 ML VIAL (humuLIN R) SUBCUT PRN ×3 (06:57→18:33)
[2021-06-10] MEDS: VANCOMYCIN HCL 500 MG in NS 100 ML IV SCH ×2 (06:58→18:03)
[2021-06-10 08:01] LABS: EOSINOPHILS % (AUTO) 0.1 % (0.0-4.0); HEMATOCRIT 39.5 % (36-54); HEMOGLOBIN 13.2 g/dL (14.0-18.0); LYMPHOCYTES # (AUTO) 0.4 K/uL (1.0-5.5); MEAN CORPUSCULAR HEMOGLOBIN 35 pg (27-31); MEAN CORPUSCULAR HGB CONC 33 % (32-36); MEAN CORPUSCULAR VOLUME 104 fL (79.0-98.0); MONOCYTES # (AUTO) 0.3 K/uL (0.0-1.0); MONOCYTES % (AUTO) 2.7 % (1.7-9.3); NEUTROPHILS # (AUTO) 11.4 K/uL (1.8-7.7); NEUTROPHILS % (AUTO) 94.2 % (40.0-70.0); PLATELET COUNT (AUTO) 96 K/uL (130-430); RED CELL DISTRIBUTION WIDTH 12.7 % (9.0-15.0); WHITE BLOOD COUNT (AUTO) 12.1 K/uL (4.8-10.8)
[2021-06-10 08:20] LABS: ALANINE AMINOTRANSFERASE 116 U/L (12-78); ALBUMIN 1.7 g/dL (3.4-4.8); ANION GAP 8 (5-15); ASPARTATE AMINOTRANSFERASE 122 U/L (10-37); CALCIUM 7.9 mg/dL (8.4-11.0); CHLORIDE 117 mmol/L (98-107); GLUCOSE 254 mg/dL (70-99); PHOSPHORUS 2.7 mg/dL (2.7-4.5); POTASSIUM 4.2 mmol/L (3.5-5.1); SODIUM SERUM 150 mmol/L (136-145); TOTAL BILIRUBIN 0.4 mg/dL (0.0-1.0); UREA NITROGEN, BLOOD 54 mg/dL (8-21)
[2021-06-10] MEDS: THIAMINE HCL 100 MG TABLET GT SCH (09:08)
[2021-06-10] MEDS: AMIODARONE HCL 200 MG TABLET PO SCH ×2 (09:09→21:00)
[2021-06-10] MEDS: QUEtiapine FUMARATE 25 MG TABLET GT SCH ×2 (09:09→22:43)
[2021-06-10] MEDS: FOLIC ACID 1 MG TABLET GT SCH (09:11)
[2021-06-10] MEDS: KCL 20 mEq in D5/0.45NS 1000mL 1,000 ML IV SCH (12:32)
[2021-06-10] MEDS: KCL 20 mEq in D5W 1000 mL 1,000 ML IV SCH (17:57)
[2021-06-10] MEDS ORDERED: TPN NEPHRAMINE IV SCH ×8 (21:00)
[2021-06-10] MEDS ORDERED: [UNRECOGNIZED DRUG - OTHER] IV SCH ×8 (21:00)
[2021-06-10] MEDS: METOPROLOL TARTRATE 25 MG TABLET PO SCH (21:00)
[2021-06-10] MEDS ORDERED: CALCIUM GLUCONATE IV SCH ×8 (21:00)
[2021-06-10] MEDS ORDERED: K PHOS IV SCH ×8 (21:00)
[2021-06-10] MEDS: FAT EMULSIONS 250 ML IV SCH (21:00)
[2021-06-11] VITALS (27 sets, daily range): BP systolic 93–145
[2021-06-11] MEDS: INSULIN REGULAR, HUMAN 100 UNITS/ML, 10 ML VIAL (humuLIN R) SUBCUT PRN ×4 (00:41→18:55)
[2021-06-11] MEDS: KCL 20 mEq in D5W 1000 mL 1,000 ML IV SCH ×2 (06:14→16:25)
[2021-06-11] MEDS: VANCOMYCIN HCL 500 MG in NS 100 ML IV SCH (06:14)
[2021-06-11 06:19] LABS: EOSINOPHILS % (AUTO) 0.1 % (0.0-4.0); HEMATOCRIT 42.8 % (36-54); LYMPHOCYTES # (AUTO) 0.3 K/uL (1.0-5.5); LYMPHOCYTES % (AUTO) 1.6 % (20.5-51.5); MEAN CORPUSCULAR HEMOGLOBIN 35 pg (27-31); MEAN CORPUSCULAR HGB CONC 33 % (32-36); MEAN CORPUSCULAR VOLUME 105 fL (79.0-98.0); MONOCYTES # (AUTO) 0.1 K/uL (0.0-1.0); MONOCYTES % (AUTO) 0.9 % (1.7-9.3); NEUTROPHILS # (AUTO) 16.8 K/uL (1.8-7.7); NEUTROPHILS % (AUTO) 97.4 % (40.0-70.0); PLATELET COUNT (AUTO) 111 K/uL (130-430); RED BLOOD CELL COUNT(AUTO) 4.06 MIL/uL (4.2-6.2); RED CELL DISTRIBUTION WIDTH 13.2 % (9.0-15.0); WHITE BLOOD COUNT (AUTO) 17.3 K/uL (4.8-10.8)
[2021-06-11 06:21] LABS: ALBUMIN 1.5 g/dL (3.4-4.8); ANION GAP 10 (5-15); CALCIUM 8.4 mg/dL (8.4-11.0); CHLORIDE 113 mmol/L (98-107); CREATININE 1.57 mg/dL (0.55-1.30); GLUCOSE 220 mg/dL (70-99); PHOSPHORUS 3.6 mg/dL (2.7-4.5); POTASSIUM 4.3 mmol/L (3.5-5.1); SODIUM SERUM 146 mmol/L (136-145); TOTAL BILIRUBIN 0.4 mg/dL (0.0-1.0); UREA NITROGEN, BLOOD 48 mg/dL (8-21)
[2021-06-11 07:21] LABS: ASPARTATE AMINOTRANSFERASE 229 U/L (10-37)
[2021-06-11 07:22] LABS: ALANINE AMINOTRANSFERASE 202 U/L (12-78)
[2021-06-11 08:06] LABS: HEPATITIS B SURFACE AG Negative (Negative); HEPATITIS C VIRUS AB <0.1 s/co ratio (0.0-0.9)
[2021-06-11] MEDS: FOLIC ACID 1 MG TABLET GT SCH (08:58)
[2021-06-11] MEDS: METOPROLOL TARTRATE 25 MG TABLET PO SCH ×2 (08:59→22:07)
[2021-06-11] MEDS: QUEtiapine FUMARATE 25 MG TABLET GT SCH ×2 (08:59→21:58)
[2021-06-11] MEDS: THIAMINE HCL 100 MG TABLET GT SCH (08:59)
[2021-06-11] MEDS: AMIODARONE HCL 200 MG TABLET PO SCH ×2 (09:18→22:06)
[2021-06-11] MEDS: IPRATROPIUM/ALBUTEROL SULFATE 3 ML AMPUL.NEB (DUONEB) INH SCH ×4 (11:23→23:40)
[2021-06-11] MEDS: ACETYLCYSTEINE 20% 4 ML VIAL (RT) INH SCH ×4 (11:23→23:40)
[2021-06-11] MEDS ORDERED: ETOMIDATE 20 MG/ 10 ML VIAL (AMIDATE) IVP ONE ×2 (13:57→21:15)
[2021-06-11] MEDS ORDERED: SUCCINYLCHOLINE CHLORIDE 20 MG/ML(QUELICIN) IVP ONE ×2 (13:57→21:15)
[2021-06-11] MEDS ORDERED: PROPOFOL DRIP 100 ML IV ONE (21:00)
[2021-06-11] MEDS ORDERED: CALCIUM GLUCONATE IV SCH ×7 (21:00)
[2021-06-11] MEDS ORDERED: KCL 20 mEq in D5W 1000 mL 1,000 ML IV SCH (21:00)
[2021-06-11] MEDS ORDERED: TPN NEPHRAMINE IV SCH ×7 (21:00)
[2021-06-11] MEDS ORDERED: [UNRECOGNIZED DRUG - OTHER] IV SCH ×7 (21:00)
[2021-06-11] MEDS ORDERED: K PHOS IV SCH ×7 (21:00)
[2021-06-11] MEDS: FAT EMULSIONS 250 ML IV SCH (21:59)
[2021-06-11] MEDS: VANCOMYCIN HCL 1 GM/NS PREMIX 250 ML IV SCH (22:10)
[2021-06-12] VITALS (33 sets, daily range): BP systolic 74–174
[2021-06-12] MEDS: INSULIN REGULAR, HUMAN 100 UNITS/ML, 10 ML VIAL (humuLIN R) SUBCUT PRN ×3 (00:47→23:59)
[2021-06-12] MEDS ORDERED: NOREPINEPHRINE BITARTRATE 4 MG in NS 246 ML IV PRN (01:00)
[2021-06-12] MEDS ORDERED: NOREPINEPHRINE 4 MG/4 ML VIAL IV ONE ×3 (01:04→06:25)
[2021-06-12] MEDS ORDERED: NOREPINEPHRINE BITARTRATE 8 MG in NS 242 ML IV PRN (03:00)
[2021-06-12] MEDS: IPRATROPIUM/ALBUTEROL SULFATE 3 ML AMPUL.NEB (DUONEB) INH SCH ×6 (03:19→23:05)
[2021-06-12] MEDS: ACETYLCYSTEINE 20% 4 ML VIAL (RT) INH SCH ×6 (03:20→23:05)
[2021-06-12] MEDS: PIPERACILLIN/TAZO 4.5GM/DEX-IS 100 ML IV SCH ×4 (03:32→21:33)
[2021-06-12] MEDS ORDERED: ATROPINE SULFATE 1 MG/10 ML SYRINGE IVP ONE (05:10)
[2021-06-12 05:29] LABS: ALANINE AMINOTRANSFERASE 126 U/L (12-78); ALBUMIN 1.2 g/dL (3.4-4.8); ANION GAP 6 (5-15); CALCIUM 7.1 mg/dL (8.4-11.0); CHLORIDE 108 mmol/L (98-107); GLUCOSE 226 mg/dL (70-99); SODIUM SERUM 136 mmol/L (136-145); TOTAL BILIRUBIN 1.3 mg/dL (0.0-1.0); TRIGLYCERIDES 48 mg/dL (30-150); UREA NITROGEN, BLOOD 52 mg/dL (8-21)
[2021-06-12] MEDS ORDERED: ALBUMIN HUMAN 25% 100 ML IV ONE ×2 (05:30→05:33)
[2021-06-12] MEDS ORDERED: ATROPINE SULFATE 1 MG/10 ML SYRINGE IVP PRN (05:30)
[2021-06-12] MEDS ORDERED: DOPamine PREMIX 250 ML IV PRN (05:30)
[2021-06-12] MEDS ORDERED: DOPamine PREMIX 250 ML IV ONE (05:31)
[2021-06-12 05:48] LABS: ASPARTATE AMINOTRANSFERASE 80 U/L (10-37)
[2021-06-12] MEDS ORDERED: SODIUM POLYSTYRENE SULFONATE 15 GM/60 ML UDBTL PO ONE (06:00)
[2021-06-12] MEDS ORDERED: SODIUM POLYSTYRENE SULFONATE 15 GM/60 ML UDBTL ONE (06:04)
[2021-06-12] MEDS: D5/0.45 NS 1,000 ML IV SCH (06:44)
[2021-06-12] MEDS ORDERED: SODIUM BICARBONATE 8.4% JECT 50 MEQ/50 ML SYRINGE ONE (07:55)
[2021-06-12] MEDS ORDERED: DEXTROSE 50% JECT 50 ML DISP.SYRIN ONE (07:57)
[2021-06-12] MEDS ORDERED: SODIUM BICARBONATE 8.4% JECT 50 MEQ/50 ML SYRINGE IVP ONE (08:00)
[2021-06-12] MEDS ORDERED: INSULIN REGULAR, HUMAN 100 UNITS/ML, 10 ML VIAL SUBCUT ONE (08:00)
[2021-06-12] MEDS ORDERED: DEXTROSE 50% JECT 50 ML DISP.SYRIN IVP ONE (08:00)
[2021-06-12] MEDS: METOPROLOL TARTRATE 25 MG TABLET PO SCH ×2 (09:00→21:00)
[2021-06-12] MEDS: QUEtiapine FUMARATE 25 MG TABLET GT SCH ×2 (09:00→21:19)
[2021-06-12] MEDS: AMIODARONE HCL 200 MG TABLET PO SCH ×2 (09:00→21:25)
[2021-06-12] MEDS: FOLIC ACID 1 MG TABLET GT SCH (09:00)
[2021-06-12] MEDS: THIAMINE HCL 100 MG TABLET GT SCH (09:00)
[2021-06-12] MEDS: DEXTROSE 10%-WATER 500 ML IV SCH ×2 (13:09→18:09)
[2021-06-12 13:17] LABS: ALANINE AMINOTRANSFERASE 106 U/L (12-78); ALBUMIN 1.8 g/dL (3.4-4.8); ANION GAP 10 (5-15); ASPARTATE AMINOTRANSFERASE 71 U/L (10-37); CALCIUM 7.7 mg/dL (8.4-11.0); CHLORIDE 107 mmol/L (98-107); CREATININE 2.48 mg/dL (0.55-1.30); GLUCOSE 102 mg/dL (70-99); POTASSIUM 5.5 mmol/L (3.5-5.1); SODIUM SERUM 139 mmol/L (136-145); TOTAL BILIRUBIN 1.8 mg/dL (0.0-1.0); UREA NITROGEN, BLOOD 63 mg/dL (8-21)
[2021-06-12] MEDS ORDERED: TPN NEPHRAMINE IV SCH ×8 (21:00)
[2021-06-12] MEDS ORDERED: [UNRECOGNIZED DRUG - OTHER] IV SCH ×8 (21:00)
[2021-06-12] MEDS ORDERED: SODIUM ACETATE IV SCH ×8 (21:00)
[2021-06-12] MEDS ORDERED: CALCIUM GLUCONATE IV SCH ×8 (21:00)
[2021-06-12] MEDS: FAT EMULSIONS 250 ML IV SCH (21:22)
[2021-06-12] MEDS: VANCOMYCIN HCL 1 GM/NS PREMIX 250 ML IV SCH (21:32)
[2021-06-13] VITALS (36 sets, daily range): BP systolic 103–154
[2021-06-13] MEDS: NOREPINEPHRINE BITARTRATE 16 MG in D5W 234 ML IV PRN (00:01)
[2021-06-13] MEDS: D5/0.45 NS 1,000 ML IV SCH ×2 (03:07→20:44)
[2021-06-13] MEDS: IPRATROPIUM/ALBUTEROL SULFATE 3 ML AMPUL.NEB (DUONEB) INH SCH ×6 (03:20→23:41)
[2021-06-13] MEDS: ACETYLCYSTEINE 20% 4 ML VIAL (RT) INH SCH ×6 (03:21→23:41)
[2021-06-13] MEDS: PIPERACILLIN/TAZO 4.5GM/DEX-IS 100 ML IV SCH (05:49)
[2021-06-13 06:17] LABS: BASOPHILS % (AUTO) 0.3 % (0.0-2.0); EOSINOPHILS # (AUTO) 0.1 K/uL (0.0-0.4); EOSINOPHILS % (AUTO) 0.8 % (0.0-4.0); HEMATOCRIT 30.9 % (36-54); HEMOGLOBIN 10.2 g/dL (14.0-18.0); LYMPHOCYTES # (AUTO) 0.3 K/uL (1.0-5.5); LYMPHOCYTES % (AUTO) 2.1 % (20.5-51.5); MEAN CORPUSCULAR HEMOGLOBIN 35 pg (27-31); MEAN CORPUSCULAR HGB CONC 33 % (32-36); MEAN CORPUSCULAR VOLUME 105 fL (79.0-98.0); MONOCYTES # (AUTO) 0.2 K/uL (0.0-1.0); MONOCYTES % (AUTO) 1.5 % (1.7-9.3); NEUTROPHILS # (AUTO) 15.2 K/uL (1.8-7.7); NEUTROPHILS % (AUTO) 95.3 % (40.0-70.0); PLATELET COUNT (AUTO) 65 K/uL (130-430); RED BLOOD CELL COUNT(AUTO) 2.95 MIL/uL (4.2-6.2); RED CELL DISTRIBUTION WIDTH 13.4 % (9.0-15.0); WHITE BLOOD COUNT (AUTO) 15.9 K/uL (4.8-10.8)
[2021-06-13 06:44] LABS: ALANINE AMINOTRANSFERASE 76 U/L (12-78); ALBUMIN 1.3 g/dL (3.4-4.8); ANION GAP 11 (5-15); ASPARTATE AMINOTRANSFERASE 72 U/L (10-37); CHLORIDE 106 mmol/L (98-107); CREATININE 2.94 mg/dL (0.55-1.30); GLUCOSE 122 mg/dL (70-99); PHOSPHORUS 5.5 mg/dL (2.7-4.5); POTASSIUM 4.5 mmol/L (3.5-5.1); SODIUM SERUM 139 mmol/L (136-145); TOTAL BILIRUBIN 1.2 mg/dL (0.0-1.0); UREA NITROGEN, BLOOD 71 mg/dL (8-21)
[2021-06-13] MEDS ORDERED: HEPARIN SODIUM,PORCINE 5,000 UNITS/ML VIAL SUBCUT ONE (07:30)
[2021-06-13] MEDS ORDERED: PANTOPRAZOLE SODIUM 40 MG/VIAL (PROTONIX) IVP ONE (07:30)
[2021-06-13] MEDS: THIAMINE HCL 100 MG TABLET GT SCH (08:29)
[2021-06-13] MEDS: FOLIC ACID 1 MG TABLET GT SCH (08:29)
[2021-06-13] MEDS: AMIODARONE HCL 200 MG TABLET PO SCH ×2 (08:30→20:43)
[2021-06-13] MEDS: METOPROLOL TARTRATE 25 MG TABLET PO SCH ×2 (08:30→20:43)
[2021-06-13] MEDS: QUEtiapine FUMARATE 25 MG TABLET GT SCH ×2 (08:32→20:46)
[2021-06-13 08:54] LABS: CALCIUM 7.1 mg/dL (8.4-11.0)
[2021-06-13] MEDS ORDERED: ATROPINE SULFATE 1 MG/10 ML SYRINGE IVP ONE (09:33)
[2021-06-13] MEDS ORDERED: NORMAL SALINE 5 ML DISP.SYRIN IVF ONE (09:42)
[2021-06-13] MEDS: CEFTAROLINE FOSAMIL ACETATE 400 MG in NS 250 ML IV SCH (14:52)
[2021-06-13] MEDS: DAPTOmycin 350 MG in NS 50 ML IV SCH (16:28)
[2021-06-13] MEDS: HEPARIN SODIUM,PORCINE 5,000 UNITS/ML VIAL SUBCUT SCH (20:44)
[2021-06-13] MEDS ORDERED: SODIUM ACETATE IV SCH ×9 (21:00)
[2021-06-13] MEDS ORDERED: POTASSIUM ACETATE IV SCH ×9 (21:00)
[2021-06-13] MEDS ORDERED: *TPN PER PHARMACY XX PRN (21:00)
[2021-06-13] MEDS ORDERED: [UNRECOGNIZED DRUG - OTHER] IV SCH ×9 (21:00)
[2021-06-13] MEDS ORDERED: TPN NEPHRAMINE IV SCH ×9 (21:00)
[2021-06-13] MEDS: MEROPENEM 500 MG in NS 50 ML IV SCH (23:43)
[2021-06-13] MEDS ORDERED: MEROPENEM 500 MG VIAL IV ONE (23:43)
[2021-06-14] VITALS (35 sets, daily range): BP systolic 109–152
[2021-06-14] MEDS: NOREPINEPHRINE BITARTRATE 16 MG in D5W 234 ML IV PRN (00:01)
[2021-06-14] MEDS: CEFTAROLINE FOSAMIL ACETATE 400 MG in NS 250 ML IV SCH ×2 (01:09→13:09)
[2021-06-14] MEDS: PROPOFOL DRIP 100 ML IV PRN ×2 (01:34→09:09)
[2021-06-14] MEDS: IPRATROPIUM/ALBUTEROL SULFATE 3 ML AMPUL.NEB (DUONEB) INH SCH ×5 (03:19→19:25)
[2021-06-14] MEDS: ACETYLCYSTEINE 20% 4 ML VIAL (RT) INH SCH ×5 (03:19→19:25)
[2021-06-14] MEDS: MEROPENEM 500 MG in NS 50 ML IV SCH (05:40)
[2021-06-14 07:30] LABS: EOSINOPHILS # (AUTO) 0.1 K/uL (0.0-0.4); EOSINOPHILS % (AUTO) 0.6 % (0.0-4.0); HEMOGLOBIN 9.1 g/dL (14.0-18.0); LYMPHOCYTES # (AUTO) 0.3 K/uL (1.0-5.5); LYMPHOCYTES % (AUTO) 1.9 % (20.5-51.5); MEAN CORPUSCULAR HEMOGLOBIN 35 pg (27-31); MEAN CORPUSCULAR HGB CONC 34 % (32-36); MEAN CORPUSCULAR VOLUME 104 fL (79.0-98.0); MONOCYTES # (AUTO) 0.2 K/uL (0.0-1.0); MONOCYTES % (AUTO) 1.5 % (1.7-9.3); NEUTROPHILS # (AUTO) 16.1 K/uL (1.8-7.7); PLATELET COUNT (AUTO) 64 K/uL (130-430); RED CELL DISTRIBUTION WIDTH 13.1 % (9.0-15.0); WHITE BLOOD COUNT (AUTO) 16.7 K/uL (4.8-10.8)
[2021-06-14] MEDS: PANTOPRAZOLE SODIUM 40 MG/VIAL (PROTONIX) IVP SCH (08:58)
[2021-06-14] MEDS: FOLIC ACID 1 MG TABLET GT SCH (08:59)
[2021-06-14] MEDS: HEPARIN SODIUM,PORCINE 5,000 UNITS/ML VIAL SUBCUT SCH ×2 (09:00→20:16)
[2021-06-14] MEDS: THIAMINE HCL 100 MG TABLET GT SCH (09:00)
[2021-06-14] MEDS: AMIODARONE HCL 200 MG TABLET PO SCH ×2 (09:07→20:13)
[2021-06-14 10:40] LABS: ALANINE AMINOTRANSFERASE 77 U/L (12-78); ALBUMIN 1.1 g/dL (3.4-4.8); ANION GAP 14 (5-15); ASPARTATE AMINOTRANSFERASE 95 U/L (10-37); CHLORIDE 106 mmol/L (98-107); CREATININE 3.57 mg/dL (0.55-1.30); GLUCOSE 153 mg/dL (70-99); PHOSPHORUS 6.2 mg/dL (2.7-4.5); POTASSIUM 3.8 mmol/L (3.5-5.1); SODIUM SERUM 139 mmol/L (136-145); TOTAL BILIRUBIN 1.1 mg/dL (0.0-1.0); UREA NITROGEN, BLOOD 84 mg/dL (8-21)
[2021-06-14 11:28] LABS: CALCIUM 6.9 mg/dL (8.4-11.0)
[2021-06-14] MEDS: INSULIN REGULAR, HUMAN 100 UNITS/ML, 10 ML VIAL (humuLIN R) SUBCUT PRN (13:25)
[2021-06-14] MEDS ORDERED: CALCIUM ACETATE 667 MG CAP PO ONE (14:00)
[2021-06-14] MEDS ORDERED: TIGECYCLINE 100 MG in NS 100 ML IV ONE (19:00)
[2021-06-14] MEDS: D5/0.45 NS 1,000 ML IV SCH (19:00)
[2021-06-14] MEDS: CALCIUM ACETATE 667 MG CAP PO SCH (19:00)
[2021-06-14] MEDS ORDERED: TIGECYCLINE IV ONE (20:23)
[2021-06-14] MEDS ORDERED: SODIUM ACETATE IV SCH ×8 (21:00)
[2021-06-14] MEDS ORDERED: POTASSIUM ACETATE IV SCH ×8 (21:00)
[2021-06-14] MEDS ORDERED: TPN NEPHRAMINE IV SCH ×8 (21:00)
[2021-06-14] MEDS ORDERED: MEROPENEM 500 MG in NS 50 ML IV SCH (21:00)
[2021-06-14] MEDS ORDERED: [UNRECOGNIZED DRUG - OTHER] IV SCH ×8 (21:00)
[2021-06-15] VITALS (36 sets, daily range): BP systolic 113–181
[2021-06-15] MEDS: IPRATROPIUM/ALBUTEROL SULFATE 3 ML AMPUL.NEB (DUONEB) INH SCH ×7 (00:20→23:11)
[2021-06-15] MEDS: ACETYLCYSTEINE 20% 4 ML VIAL (RT) INH SCH ×7 (00:21→23:11)
[2021-06-15] MEDS: D5/0.45 NS 1,000 ML IV SCH (01:15)
[2021-06-15] MEDS: CEFTAROLINE FOSAMIL ACETATE 400 MG in NS 250 ML IV SCH ×2 (01:57→16:23)
[2021-06-15] MEDS: CALCIUM ACETATE 667 MG CAP PO SCH ×3 (08:00→20:45)
[2021-06-15] MEDS: THIAMINE HCL 100 MG TABLET GT SCH (08:36)
[2021-06-15] MEDS: FOLIC ACID 1 MG TABLET GT SCH (08:36)
[2021-06-15] MEDS: PANTOPRAZOLE SODIUM 40 MG/VIAL (PROTONIX) IVP SCH (08:37)
[2021-06-15] MEDS: AMIODARONE HCL 200 MG TABLET PO SCH ×2 (08:37→20:49)
[2021-06-15] MEDS: HEPARIN SODIUM,PORCINE 5,000 UNITS/ML VIAL SUBCUT SCH ×2 (08:38→20:47)
[2021-06-15] MEDS: TIGECYCLINE 50 MG in NS 100 ML IV SCH ×2 (08:41→20:47)
[2021-06-15 08:49] LABS: ANION GAP 13 (5-15); CALCIUM 7.1 mg/dL (8.4-11.0); CHLORIDE 105 mmol/L (98-107); CREATININE 3.66 mg/dL (0.55-1.30); GLUCOSE 156 mg/dL (70-99); PHOSPHORUS 6.5 mg/dL (2.7-4.5); POTASSIUM 3.7 mmol/L (3.5-5.1); SODIUM SERUM 138 mmol/L (136-145); UREA NITROGEN, BLOOD 96 mg/dL (8-21)
[2021-06-15 09:26] LABS: MEAN CORPUSCULAR HEMOGLOBIN 35 pg (27-31); MEAN CORPUSCULAR VOLUME 104 fL (79.0-98.0)
[2021-06-15] MEDS: METOCLOPRAMIDE HCL 10 MG/2 ML VIAL IVP PRN ×2 (11:05→19:09)
[2021-06-15] MEDS: DAPTOmycin 350 MG in NS 50 ML IV SCH (16:24)
[2021-06-15 17:42] LABS: RED BLOOD CELL COUNT(AUTO) 2.69 MIL/uL (4.2-6.2); WHITE BLOOD COUNT (AUTO) 12.9 K/uL (4.8-10.8)
[2021-06-15 17:43] LABS: HEMATOCRIT 27.8 % (36-54); HEMOGLOBIN 9.4 g/dL (14.0-18.0); MEAN CORPUSCULAR HGB CONC 34 % (32-36); PLATELET COUNT (AUTO) 62 K/uL (130-430); RED CELL DISTRIBUTION WIDTH 13.2 % (9.0-15.0)
[2021-06-15 17:48] LABS: BAND % (MANUAL) 0 % (0-6); BASOPHILS % (MANUAL) 0 % (0-2); EOSINOPHILS % (MANUAL) 0 % (0-7); LYMPHOCYTES % (MANUAL) 4 % (20-46); MONOCYTES % (MANUAL) 1 % (0-11)
[2021-06-15] MEDS ORDERED: SODIUM ACETATE IV SCH ×8 (21:00)
[2021-06-15] MEDS ORDERED: TPN NEPHRAMINE IV SCH ×8 (21:00)
[2021-06-15] MEDS ORDERED: [UNRECOGNIZED DRUG - OTHER] IV SCH ×8 (21:00)
[2021-06-15] MEDS ORDERED: POTASSIUM ACETATE IV SCH ×8 (21:00)
[2021-06-16] VITALS (28 sets, daily range): BP systolic 78–180
[2021-06-16] MEDS: CEFTAROLINE FOSAMIL ACETATE 400 MG in NS 250 ML IV SCH ×2 (03:00→15:49)
[2021-06-16] MEDS: IPRATROPIUM/ALBUTEROL SULFATE 3 ML AMPUL.NEB (DUONEB) INH SCH ×6 (03:47→23:34)
[2021-06-16 06:44] LABS: BASOPHILS % (AUTO) 0.2 % (0.0-2.0); EOSINOPHILS % (AUTO) 0.2 % (0.0-4.0); HEMATOCRIT 28.7 % (36-54); HEMOGLOBIN 9.6 g/dL (14.0-18.0); LYMPHOCYTES # (AUTO) 0.2 K/uL (1.0-5.5); LYMPHOCYTES % (AUTO) 1.2 % (20.5-51.5); MEAN CORPUSCULAR HEMOGLOBIN 34 pg (27-31); MEAN CORPUSCULAR HGB CONC 33 % (32-36); MEAN CORPUSCULAR VOLUME 103 fL (79.0-98.0); MONOCYTES # (AUTO) 0.1 K/uL (0.0-1.0); MONOCYTES % (AUTO) 0.7 % (1.7-9.3); NEUTROPHILS # (AUTO) 15.9 K/uL (1.8-7.7); NEUTROPHILS % (AUTO) 97.7 % (40.0-70.0); PLATELET COUNT (AUTO) 54 K/uL (130-430); RED BLOOD CELL COUNT(AUTO) 2.78 MIL/uL (4.2-6.2); WHITE BLOOD COUNT (AUTO) 16.3 K/uL (4.8-10.8)
[2021-06-16 08:01] LABS: ANION GAP 15 (5-15); CALCIUM 7.1 mg/dL (8.4-11.0); CHLORIDE 102 mmol/L (98-107); CREATININE 3.83 mg/dL (0.55-1.30); GLUCOSE 102 mg/dL (70-99); PHOSPHORUS 7.3 mg/dL (2.7-4.5); POTASSIUM 4.3 mmol/L (3.5-5.1); SODIUM SERUM 135 mmol/L (136-145)
[2021-06-16] MEDS: ACETYLCYSTEINE 20% 4 ML VIAL (RT) INH SCH ×5 (08:13→23:34)
[2021-06-16] MEDS: HEPARIN SODIUM,PORCINE 5,000 UNITS/ML VIAL SUBCUT SCH (09:00)
[2021-06-16] MEDS: THIAMINE HCL 100 MG TABLET GT SCH (09:17)
[2021-06-16] MEDS: PANTOPRAZOLE SODIUM 40 MG/VIAL (PROTONIX) IVP SCH (09:17)
[2021-06-16] MEDS: FOLIC ACID 1 MG TABLET GT SCH (09:18)
[2021-06-16] MEDS: CALCIUM ACETATE 667 MG CAP PO SCH ×3 (09:18→18:17)
[2021-06-16] MEDS: AMIODARONE HCL 200 MG TABLET PO SCH ×2 (09:18→20:08)
[2021-06-16] MEDS: D5/0.45 NS 1,000 ML IV SCH (10:00)
[2021-06-16 10:37] LABS: UREA NITROGEN, BLOOD 116 mg/dL (8-21)
[2021-06-16] MEDS: TIGECYCLINE 50 MG in NS 100 ML IV SCH ×2 (10:38→20:07)
[2021-06-16] MEDS ORDERED: HEPARIN SODIUM,PORCINE 5,000 UNITS/ML VIAL ONE ×2 (10:40→17:05)
[2021-06-16 11:23] LABS: INR 1.2 (0.80-1.20); PROTHROMBIN TIME 12.6 SECS (9.5-12.5)
[2021-06-16] MEDS ORDERED: ALBUMIN HUMAN 25% 100 ML IV ONE ×4 (15:48→16:45)
[2021-06-16] MEDS ORDERED: HEPARIN SODIUM, PORCINE 10,000 UNITS/ 10 ML VIAL MC ONE ×3 (16:15→17:15)
[2021-06-16] MEDS: PROPOFOL DRIP 100 ML IV PRN (17:58)
[2021-06-16] MEDS: NOREPINEPHRINE BITARTRATE 16 MG in D5W 234 ML IV PRN (18:05)
[2021-06-16] MEDS ORDERED: SODIUM ACETATE IV SCH ×9 (21:00)
[2021-06-16] MEDS ORDERED: [UNRECOGNIZED DRUG - OTHER] IV SCH ×9 (21:00)
[2021-06-16] MEDS ORDERED: POTASSIUM ACETATE IV SCH ×9 (21:00)
[2021-06-16] MEDS ORDERED: TPN NEPHRAMINE IV SCH ×9 (21:00)
[2021-06-17] VITALS (29 sets, daily range): BP systolic 77–178
[2021-06-17] MEDS: CEFTAROLINE FOSAMIL ACETATE 400 MG in NS 250 ML IV SCH ×2 (02:20→13:50)
[2021-06-17] MEDS: ACETYLCYSTEINE 20% 4 ML VIAL (RT) INH SCH ×6 (03:42→23:27)
[2021-06-17] MEDS: IPRATROPIUM/ALBUTEROL SULFATE 3 ML AMPUL.NEB (DUONEB) INH SCH ×6 (03:42→23:27)
[2021-06-17 08:06] LABS: EOSINOPHILS # (AUTO) 0.1 K/uL (0.0-0.4); EOSINOPHILS % (AUTO) 0.8 % (0.0-4.0); HEMATOCRIT 22.2 % (36-54); HEMOGLOBIN 7.4 g/dL (14.0-18.0); LYMPHOCYTES # (AUTO) 0.4 K/uL (1.0-5.5); LYMPHOCYTES % (AUTO) 3.1 % (20.5-51.5); MEAN CORPUSCULAR HEMOGLOBIN 34 pg (27-31); MEAN CORPUSCULAR HGB CONC 34 % (32-36); MEAN CORPUSCULAR VOLUME 102 fL (79.0-98.0); MONOCYTES # (AUTO) 0.1 K/uL (0.0-1.0); MONOCYTES % (AUTO) 0.9 % (1.7-9.3); NEUTROPHILS # (AUTO) 12.5 K/uL (1.8-7.7); NEUTROPHILS % (AUTO) 95.2 % (40.0-70.0); RED BLOOD CELL COUNT(AUTO) 2.17 MIL/uL (4.2-6.2); RED CELL DISTRIBUTION WIDTH 12.7 % (9.0-15.0); WHITE BLOOD COUNT (AUTO) 13.1 K/uL (4.8-10.8)
[2021-06-17] MEDS: TIGECYCLINE 50 MG in NS 100 ML IV SCH ×2 (09:02→21:35)
[2021-06-17] MEDS: CALCIUM ACETATE 667 MG CAP PO SCH ×2 (09:02→13:47)
[2021-06-17] MEDS: THIAMINE HCL 100 MG TABLET GT SCH (09:02)
[2021-06-17] MEDS: FOLIC ACID 1 MG TABLET GT SCH (09:02)
[2021-06-17] MEDS: PANTOPRAZOLE SODIUM 40 MG/VIAL (PROTONIX) IVP SCH (09:02)
[2021-06-17] MEDS: AMIODARONE HCL 200 MG TABLET PO SCH ×2 (09:03→21:00)
[2021-06-17 09:54] LABS: ALANINE AMINOTRANSFERASE 56 U/L (12-78); ALBUMIN 1.7 g/dL (3.4-4.8); ANION GAP 10 (5-15); ASPARTATE AMINOTRANSFERASE 69 U/L (10-37); CHLORIDE 100 mmol/L (98-107); CREATININE 2.98 mg/dL (0.55-1.30); GLUCOSE 83 mg/dL (70-99); PHOSPHORUS 6.4 mg/dL (2.7-4.5); POTASSIUM 4.2 mmol/L (3.5-5.1); SODIUM SERUM 133 mmol/L (136-145); TOTAL BILIRUBIN 1.4 mg/dL (0.0-1.0); TRIGLYCERIDES 62 mg/dL (30-150); UREA NITROGEN, BLOOD 89 mg/dL (8-21)
[2021-06-17 09:56] LABS: PLATELET COUNT (AUTO) 48 K/uL (130-430)
[2021-06-17 10:00] LABS: CALCIUM 6.7 mg/dL (8.4-11.0)
[2021-06-17] MEDS ORDERED: DEXTROSE 50% JECT 50 ML DISP.SYRIN ONE (11:54)
[2021-06-17] MEDS: ALBUMIN HUMAN 25% 100 ML IV SCH ×2 (13:49→19:51)
[2021-06-17] MEDS ORDERED: CALCIUM GLUCONATE 2 GM in NS 100 ML IV ONE (14:00)
[2021-06-17] MEDS ORDERED: POTASSIUM ACETATE IV SCH ×10 (21:00)
[2021-06-17] MEDS ORDERED: TPN NEPHRAMINE IV SCH ×10 (21:00)
[2021-06-17] MEDS ORDERED: SODIUM ACETATE IV SCH ×10 (21:00)
[2021-06-17] MEDS ORDERED: [UNRECOGNIZED DRUG - OTHER] IV SCH ×10 (21:00)
[2021-06-18] VITALS (23 sets, daily range): BP systolic 78–173
[2021-06-18] MEDS: ALBUMIN HUMAN 25% 100 ML IV SCH ×2 (01:00→07:25)
[2021-06-18] MEDS: CEFTAROLINE FOSAMIL ACETATE 400 MG in NS 250 ML IV SCH (02:00)
[2021-06-18] MEDS: IPRATROPIUM/ALBUTEROL SULFATE 3 ML AMPUL.NEB (DUONEB) INH SCH ×4 (03:17→15:26)
[2021-06-18] MEDS: ACETYLCYSTEINE 20% 4 ML VIAL (RT) INH SCH ×4 (03:18→15:26)
[2021-06-18 06:30] LABS: EOSINOPHILS # (AUTO) 0.1 K/uL (0.0-0.4); EOSINOPHILS % (AUTO) 0.9 % (0.0-4.0); HEMOGLOBIN 7.2 g/dL (14.0-18.0); LYMPHOCYTES # (AUTO) 0.3 K/uL (1.0-5.5); LYMPHOCYTES % (AUTO) 4.4 % (20.5-51.5); MEAN CORPUSCULAR HEMOGLOBIN 35 pg (27-31); MEAN CORPUSCULAR HGB CONC 34 % (32-36); MEAN CORPUSCULAR VOLUME 103 fL (79.0-98.0); MONOCYTES # (AUTO) 0.1 K/uL (0.0-1.0); MONOCYTES % (AUTO) 0.8 % (1.7-9.3); NEUTROPHILS % (AUTO) 93.9 % (40.0-70.0); RED BLOOD CELL COUNT(AUTO) 2.05 MIL/uL (4.2-6.2); RED CELL DISTRIBUTION WIDTH 12.6 % (9.0-15.0); WHITE BLOOD COUNT (AUTO) 6.4 K/uL (4.8-10.8)
[2021-06-18 06:58] LABS: ALANINE AMINOTRANSFERASE 50 U/L (12-78); ALBUMIN 2.2 g/dL (3.4-4.8); ANION GAP 11 (5-15); ASPARTATE AMINOTRANSFERASE 76 U/L (10-37); CHLORIDE 98 mmol/L (98-107); CREATININE 3.46 mg/dL (0.55-1.30); GLUCOSE 67 mg/dL (70-99); PHOSPHORUS 8.9 mg/dL (2.7-4.5); SODIUM SERUM 132 mmol/L (136-145); TOTAL BILIRUBIN 2.3 mg/dL (0.0-1.0)
[2021-06-18 07:46] LABS: HEMATOCRIT 21.2 % (36-54); PLATELET COUNT (AUTO) 26 K/uL (130-430)
[2021-06-18] MEDS: PANTOPRAZOLE SODIUM 40 MG/VIAL (PROTONIX) IVP SCH (08:29)
[2021-06-18] MEDS: THIAMINE HCL 100 MG TABLET GT SCH (08:40)
[2021-06-18] MEDS: AMIODARONE HCL 200 MG TABLET PO SCH (08:41)
[2021-06-18] MEDS: FOLIC ACID 1 MG TABLET GT SCH (08:41)
[2021-06-18] MEDS: TIGECYCLINE 50 MG in NS 100 ML IV SCH (08:49)
[2021-06-18 08:59] LABS: CALCIUM 6.9 mg/dL (8.4-11.0); UREA NITROGEN, BLOOD 114 mg/dL (8-21)
[2021-06-18] MEDS: NOREPINEPHRINE BITARTRATE 16 MG in D5W 234 ML IV PRN ×2 (09:10→14:00)
[2021-06-18] MEDS ORDERED: CALCIUM GLUCONATE 2 GM in NS 100 ML IV ONE (09:45)
[2021-06-18] MEDS ORDERED: DOPamine PREMIX 250 ML IV ONE (10:01)
[2021-06-18] MEDS ORDERED: EPINEPHRINE AMPULE IV PRN ×2 (10:15)
[2021-06-18] MEDS ORDERED: NS IV PRN ×3 (10:15)
[2021-06-18] MEDS ORDERED: EPINEPHrine 5 MG in NS 245 ML IV PRN ×3 (10:15→15:30)
[2021-06-18] MEDS ORDERED: EPINEPHRINE IV PRN (10:15)
[2021-06-18] MEDS ORDERED: DEXTROSE 50% JECT 50 ML DISP.SYRIN ONE (12:42)
[2021-06-18] MEDS ORDERED: ATROPINE SULFATE 1 MG/10 ML SYRINGE IVP ONE (14:02)
[2021-06-18] MEDS ORDERED: EPINEPHrine JECT 0.1 MG/ML SYR IVP ONE (14:02)
[2021-06-18] MEDS ORDERED: [UNRECOGNIZED DRUG - OTHER] IV SCH ×8 (21:00)
[2021-06-18] MEDS ORDERED: TPN NEPHRAMINE IV SCH ×8 (21:00)
[2021-06-18] MEDS ORDERED: CALCIUM GLUCONATE IV SCH ×8 (21:00)
[2021-06-18] MEDS ORDERED: SODIUM ACETATE IV SCH ×8 (21:00)
[2021-06-19 15:17] LABS: HEPATITIS B CORE AB, TOTAL Positive (Negative)
== END 2021-06-18 21:08 | DRG 870 ==
LOC: SED 14:11 → STU 18:37 → SIC 06-05 15:48
PROVIDERS: ADMIT Internal Medicine; ATTEND Internal Medicine
PROC: 4A10X4Z Monitoring of Central Nervous Electrical Activity, External Approach (ICD-10-PCS; 2021-05-31)
PROC: 4A10X4Z Monitoring of Central Nervous Electrical Activity, External Approach (ICD-10-PCS; 2021-06-06)
PROC: 5A1955Z Respiratory Ventilation, Greater than 96 Consecutive Hours (ICD-10-PCS; principal; 2021-06-11)
PROC: 0BH17EZ Insertion of Endotracheal Airway into Trachea, Via Natural or Artificial Opening (ICD-10-PCS; 2021-06-11)
PROC: 5A1D70Z Performance of Urinary Filtration, Intermittent, Less than 6 Hours Per Day (ICD-10-PCS; 2021-06-14)
PROC: 02HV33Z Insertion of Infusion Device into Superior Vena Cava, Percutaneous Approach (ICD-10-PCS; 2021-06-16)
PROC: B548ZZA Ultrasonography of Superior Vena Cava, Guidance (ICD-10-PCS; 2021-06-16)
PROC: 5A1D70Z Performance of Urinary Filtration, Intermittent, Less than 6 Hours Per Day (ICD-10-PCS; 2021-06-17)
PROC: 5A12012 Performance of Cardiac Output, Single, Manual (ICD-10-PCS; 2021-06-18)
DX: A41.02 Sepsis due to Methicillin resistant Staphylococcus aureus (principal); J18.9 Pneumonia, unspecified organism; R65.21 Severe sepsis with septic shock; J96.01 Acute respiratory failure with hypoxia; N17.0 Acute kidney failure with tubular necrosis; E43 Unspecified severe protein-calorie malnutrition; G92.9 Unspecified toxic encephalopathy; K72.00 Acute and subacute hepatic failure without coma; I63.9 Cerebral infarction, unspecified; E51.2 Wernicke's encephalopathy; L03.114 Cellulitis of left upper limb; I48.20 Chronic atrial fibrillation, unspecified; F10.139 Alcohol abuse with withdrawal, unspecified; N39.0 Urinary tract infection, site not specified; F03.90 Unspecified dementia, unspecified severity, without behavioral disturbance, psychotic disturbance, mood disturbance, and anxiety; I10 Essential (primary) hypertension; F29 Unspecified psychosis not due to a substance or known physiological condition; T85.9XXA Unspecified complication of internal prosthetic device, implant and graft, initial encounter; I49.9 Cardiac arrhythmia, unspecified; Y83.8 Other surgical procedures as the cause of abnormal reaction of the patient, or of later complication, without mention of misadventure at the time of the procedure; Y90.9 Presence of alcohol in blood, level not specified; D69.6 Thrombocytopenia, unspecified; E87.5 Hyperkalemia; R33.9 Retention of urine, unspecified; E86.0 Dehydration; S09.90XA Unspecified injury of head, initial encounter; W18.39XA Other fall on same level, initial encounter; N40.0 Benign prostatic hyperplasia without lower urinary tract symptoms; Z20.822 Contact with and (suspected) exposure to COVID-19; Y92.89 Other specified places as the place of occurrence of the external cause; Z79.01 Long term (current) use of anticoagulants; Z78.1 Physical restraint status; Z91.83 Wandering in diseases classified elsewhere; Y93.89 Activity, other specified; Y99.8 Other external cause status; Z68.21 Body mass index [BMI] 21.0-21.9, adult
CPT/HCPCS: 36415; 36600; 70450-TC; 71045; 71250-TC; 72125-TC; 76376; 76770; 80048; 80053; 80061; 80202; 80307; 81000; 82040; 82140; 82533; 82803-TC; 82962; 83605; 83735; 83874; 83880; 84100; 84153; 84443; 84478; 84484; 85007; 85025; 85027; 85379; 85384; 85610-TC; 85730-TC; 86704; 86706; 86803; 86886; 86900; 86901; 86920; 87040-TC; 87070-TC; 87081; 87086; 87186-TC; 87205-TC; 87340; 90935; 93005; 93306; 93923; 93970; 94002; 94003; 94640; 95816; 96361; 96372; 96374; 97110-GP; 97116-GP; 97530-GP; 99291; C9113; G0378; G0482; J0153; J0171; J0282; J0330; J0461; J0515; J0610; J0696; J0712; J0878; J1200; J1265; J1630; J1644; J1815; J2060; J2185; J2543; J2704; J2765; J3243; J3370; J3411; J3475; J3480; J3490; J7030; J7050; J7060; J7131; J7608; P9046